=== PATIENT | female | born 1980 | race African-American/Black ===

== ENCOUNTER 2016-03-13 13:45 | Emergency (ER) | payer OTHER ==
[2016-03-13] MEDS ORDERED: ASPIRIN 81 MG CHEW TAB ONE (15:27)
== END 2016-03-13 16:17 | disposition home or self-care (01) ==
LOC: ER 13:45
CPT/HCPCS: 36415; 71010; 80053; 82550; 83735; 84484; 85025; 85610; 85730; 93005